=== PATIENT | male | born 2000 | race Caucasian/White ===

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

== ENCOUNTER 2021-05-21 18:56 | Emergency (ER) | payer BC, OTHER ==
[2021-05-21 20:39] LABS: CORONAVIRUS COVID-19 NAA NEGATIVE (NEGATIVE); RESPIRATORY SYNCYTIAL VIR NAA NEGATIVE (NEGATIVE)
--- NOTE | 2021-06-05 09:16 | EDM.PDOC ---
ED HPI GENERAL MEDICAL PROBLEM - General Chief Complaint: Fever Stated Complaint: NOT FEELING WELL Time Seen by Provider: 05/21/21 19:49 Source of Information: Reports: Patient History Limitations: Reports: No Limitations - History of Present Illness INITIAL COMMENTS - FREE TEXT/NARRATIVE: Pt. presents to ER with complaints of fever, chills, fatigue, headache that started earlier in the day. He has had some mild cough. No nausea, vomiting, or diarrhea. Complains of mild congestion. Denies any abdominal pain. No numbness/tingling in extremities. No problems with speech/ambulation. Denies any ill contacts. Onset Date: 05/21/21 Location: Reports: Head, Generalized - Related Data Allergies Allergy/AdvReac Type Severity Reaction Status Date / Time No Known Allergies Allergy Verified 10/11/18 19:30 Home Meds: Home Meds . [No Known Home Meds] 11/20/17 [History] Past Medical History - Past Health History Medical/Surgical History: Denies Medical/Surgical History Social & Family History - Tobacco Use Tobacco Use Status *Q: Never Tobacco User - Recreational Drug Use Recreational Drug Use: No ED ROS GENERAL - Review of Systems Review Of Systems: See Below Constitutional: Reports: Fever, Chills, Malaise, Fatigue HEENT: Reports: Rhinitis, Sinus Problem, Throat Pain, Throat Swelling Respiratory: Reports: Cough Cardiovascular: Reports: No Symptoms Endocrine: Reports: No Symptoms GI/Abdominal: Reports: No Symptoms : Reports: No Symptoms Musculoskeletal: Reports: No Symptoms Skin: Reports: No Symptoms Neurological: Reports: No Symptoms Psychiatric: Reports: No Symptoms Hematologic/Lymphatic: Reports: No Symptoms Immunologic: Reports: No Symptoms ED EXAM, GENERAL - Physical Exam Exam: See Below Exam Limited By: No Limitations General Appearance: Alert, WD/WN, No Apparent Distress Eye Exam: Bilateral Eye: EOMI, PERRL Ears: Normal External Exam, Normal Canal, Hearing Grossly Normal, Normal TMs Ear Exam: Bilateral Ear: Auricle Normal, Canal Normal, TM normal Nose: Clear Rhinorrhea Throat/Mouth: Normal Lips, Normal Teeth, Normal Gums, Normal Voice, No Airway Compromise Head: Atraumatic, Normocephalic Neck: Normal Inspection, Lymphadenopathy (L), Lymphadenopathy (R) Respiratory/Chest: No Respiratory Distress, Lungs Clear, Normal Breath Sounds, No Accessory Muscle Use, Chest Non-Tender Cardiovascular: Normal Peripheral Pulses, Regular Rate, Rhythm, No Edema, No JVD GI/Abdominal: Soft, Non-Tender, No Distention, No Mass (Male) Exam: Deferred Rectal (Males) Exam: Deferred Extremities: Normal Inspection, Normal Range of Motion, Non-Tender, No Pedal Edema, Normal Capillary Refill Neurological: Alert, Oriented, CN II-XII Intact, Normal Cognition, Normal Gait, Normal Reflexes, No Motor/Sensory Deficits Psychiatric: Normal Affect, Normal Mood Skin Exam: Warm, Dry, Pallor Lymphatic: No Adenopathy Course - Vital Signs Last Recorded V/S: Last Vital Signs Temp 38.8 C H 05/21/21 19:49 Pulse 113 H 05/21/21 19:49 Resp 17 05/21/21 19:49 BP 141/44 H 05/21/21 19:49 Pulse Ox 98 05/21/21 19:49 - Orders/Labs/Meds Labs: Laboratory Tests 05/21/21 05/21/21 Range/Units 19:35 20:16 Influenza Type A RNA Negative (NEGATIVE) RSV RNA (INAAT) Negative (NEGATIVE) Influenza Type B RNA Negative (NEGATIVE) SARS-CoV-2 RNA (CARRIE) Negative (NEGATIVE) Group A Strep (PCR) Not detected (NOT DETECT) Departure - Departure Time of Disposition: 20:30 Disposition: Home, Self-Care 01 Clinical Impression: Viral illness - Discharge Information Instructions: Viral Illness, Adult Referrals: PCP,None [Primary Care Provider] - Forms: ED Department Discharge Additional Instructions: Home to rest. Tylenol and ibuprofen for fever/discomfort Drink plenty of fluids Recheck in clinic in 7-10 days if not improving. Sepsis Event Note (ED) - Evaluation Sepsis Screening Result: No Definite Risk - Problem List Review Problem List Initiated/Reviewed/Updated: Yes - Assessment/Plan Plan: Home to rest. Tylenol and ibuprofen for fever/discomfort Drink plenty of fluids Recheck in clinic in 7-10 days if not improving.
== END 2021-05-21 21:09 | disposition home or self-care (01) ==
LOC: VM.ED 18:56
DX: B34.9 Viral infection, unspecified (principal); Z20.822 Contact with and (suspected) exposure to COVID-19
CPT/HCPCS: 0241U; 87651; 99283

== ENCOUNTER 2022-04-22 18:42 | Emergency (ER) | payer OTHER | END 2022-04-22 19:28 | disposition home or self-care (01) | LOC: VM.ED 18:42 | DX: J01.90 Acute sinusitis, unspecified (principal); B97.89 Other viral agents as the cause of diseases classified elsewhere | CPT/HCPCS: 99283 ==

== ENCOUNTER 2022-07-28 15:49 | Emergency (ER) | payer OTHER | END 2022-07-28 16:40 | disposition home or self-care (01) | LOC: VM.ED 15:49 | DX: J03.90 Acute tonsillitis, unspecified (principal); J35.8 Other chronic diseases of tonsils and adenoids; Z79.899 Other long term (current) drug therapy | CPT/HCPCS: 87651-QW; 99283 ==

== ENCOUNTER 2023-02-22 15:44 | Emergency (ER) | payer OTHER ==
[2023-02-22] MEDS: Diphtheria,Pertussis(Acell),Tetanus Vaccine 0.5 ML Syringe IM ONE (16:09)
== END 2023-02-22 16:13 | disposition home or self-care (01) ==
LOC: VM.ED 15:44
DX: S61.411A Laceration without foreign body of right hand, initial encounter (principal); Z23 Encounter for immunization; W26.8XXA Contact with other sharp object(s), not elsewhere classified, initial encounter
CPT/HCPCS: 90471; 90715; 99282-25

== ENCOUNTER 2024-11-19 01:20 | Emergency (ER) | payer SELFPAY | END 2024-11-19 01:59 | disposition home or self-care (01) | LOC: VM.ED 01:20 | DX: S01.112A Laceration without foreign body of left eyelid and periocular area, initial encounter (principal); Y04.2XXA Assault by strike against or bumped into by another person, initial encounter | CPT/HCPCS: 99283 ==

== ENCOUNTER 2025-04-09 16:55 | Emergency (ER) | payer BC ==
[2025-04-09] MEDS: Fluorescein 1 MG Ophth Strip EYERT ONE (17:29)
[2025-04-09] MEDS: Tetracaine HCl/PF 0.5% 4 ML Bottle EYERT ONE (17:29)
== END 2025-04-09 17:39 | disposition home or self-care (01) ==
LOC: VM.ED 16:55
DX: H57.89 Other specified disorders of eye and adnexa (principal)
CPT/HCPCS: 99283; J3490